=== PATIENT | male | born 1975 | race African-American/Black ===

== ENCOUNTER 2023-07-11 12:54 | Inpatient (IN) | payer MEDICAID, OTHER ==
[~2023-07-11] VITALS: Ht 203.2 cm; Wt 77.1 kg
[2023-07-11] MEDS ORDERED: HYDROMORPHONE 1 MG/1 ML DISP.SYRIN IV ONE ×2 (14:00→17:15)
[2023-07-11] MEDS ORDERED: ONDANSETRON 4 MG/2 ML VIAL IV ONE ×2 (14:00→17:15)
[2023-07-11] MEDS ORDERED: CEFTRIAXONE 1 G in IV DEXTROSE 5% 50 ML IV ONE (14:00)
[2023-07-11] MEDS ORDERED: CEFTRIAXONE /D5W 50ML IVPB **ER PYXIS IV ONE (14:09)
[2023-07-11] MEDS ORDERED: HYDROMORPHONE 1 MG/1 ML DISP.SYRIN ONE ×2 (14:09→17:16)
[2023-07-11] MEDS ORDERED: ONDANSETRON 4 MG/2 ML VIAL ONE ×2 (14:09→17:16)
[2023-07-11 14:15] LABS: BASOPHILS % (AUTO) 0.3 % (0.0-2.0); EOSINOPHILS # (AUTO) 0.2 K/uL (0.0-0.7); EOSINOPHILS % (AUTO) 2.1 % (0.0-7.0); HEMOGLOBIN 14.6 g/dL (12.5-16.3); LYMPHOCYTES # (AUTO) 1.5 K/uL (0.8-4.8); LYMPHOCYTES % (AUTO) 14.3 % (20.5-51.5); MEAN CORPUSCULAR HEMOGLOBIN 29.4 uug (23.8-33.4); MEAN CORPUSCULAR HGB CONC 33 g/dL (32.5-36.3); MEAN CORPUSCULAR VOLUME 88.3 fL (73.0-96.2); MONOCYTES # (AUTO) 0.8 K/uL (0.1-1.30); MONOCYTES % (AUTO) 7.4 % (0.0-11.0); NEUTROPHILS # (AUTO) 7.9 K/uL (1.8-8.9); NEUTROPHILS % (AUTO) 75.9 % (38.5-71.5); PLATELET COUNT (AUTO) 176 K/uL (152-348); RED BLOOD CELL COUNT(AUTO) 4.98 MIL/uL (4.06-5.63); RED CELL DISTRIBUTION WIDTH 12.7 % (12.1-16.2); WHITE BLOOD COUNT (AUTO) 10.4 K/uL (3.6-10.2)
[2023-07-11 14:25] LABS: CALCIUM 9.4 mg/dL (8.5-10.1); CREATININE 1.1 mg/dL (0.6-1.3); POTASSIUM 3.8 mmol/L (3.5-5.1)
[2023-07-11 14:29] LABS: DIFFERENTIAL COMMENT 1
[2023-07-11 14:30] LABS: ALBUMIN 4.2 g/dL (3.4-5.0); BILIRUBIN,TOTAL 0.9 mg/dL (0.2-1.0); TOTAL PROTEIN, SERUM 7.8 g/dL (6.4-8.2)
[2023-07-11] MEDS ORDERED: IV NORMAL SALINE 250 ML IV ONE (14:48)
[2023-07-11] MEDS ORDERED: IOHEXOL 300MG/ML 100 ML INFUS..BTL ONE (14:48)
[2023-07-11] MEDS ORDERED: SWABABLE VALVE TRANSFER SET EA MC ONE (14:48)
[2023-07-11] MEDS ORDERED: LIDOCAINE 2%-EPI 1:100,000 20 ML VIAL TP STA (19:40)
[2023-07-11] MEDS ORDERED: LIDOCAINE 1%-EPI 1:100,000 20 ML VIAL ONE (19:50)
[2023-07-11] MEDS: AMOXICILLIN-CLAVUL 875-125MG TABLET PO SCH (21:02)
[2023-07-11 21:10] VITALS: BP 105/47; TEMP 98.4; O2SAT 99
[2023-07-11] MEDS ORDERED: HYDROCODONE/APAP 5-325MG TABLET PO PRN (22:15)
[2023-07-11] MEDS ORDERED: MORPHINE SULFATE 4 MG/1 ML DISP.SYRIN IV PRN (22:15)
[2023-07-12] MEDS ORDERED: ACETAMINOPHEN 325 MG TABLET PO PRN (01:15)
[2023-07-12] MEDS ORDERED: ZOLPIDEM 5 MG TABLET PO PRN (01:15)
[2023-07-12] MEDS ORDERED: REMEDY ESSENTIAL ZINC PASTE 113 GM TP PRN (01:15)
[2023-07-12] MEDS ORDERED: ONDANSETRON 4 MG/2 ML VIAL IV PRN (01:15)
[2023-07-12] MEDS ORDERED: MAGNESIUM HYDROXIDE 30 ML LIQUID UDC PO PRN (01:15)
[2023-07-12 04:22] VITALS: BP 111/64; TEMP 98.5; O2SAT 95
[2023-07-12 06:44] LABS: BASOPHILS % (AUTO) 0.3 % (0.0-2.0); EOSINOPHILS # (AUTO) 0.2 K/uL (0.0-0.7); EOSINOPHILS % (AUTO) 2.3 % (0.0-7.0); HEMATOCRIT 39.8 % (36.7-47.1); HEMOGLOBIN 13.6 g/dL (12.5-16.3); LYMPHOCYTES # (AUTO) 1.7 K/uL (0.8-4.8); LYMPHOCYTES % (AUTO) 19.6 % (20.5-51.5); MEAN CORPUSCULAR HEMOGLOBIN 29.7 uug (23.8-33.4); MEAN CORPUSCULAR HGB CONC 34 g/dL (32.5-36.3); MONOCYTES # (AUTO) 0.7 K/uL (0.1-1.30); MONOCYTES % (AUTO) 7.6 % (0.0-11.0); NEUTROPHILS % (AUTO) 70.2 % (38.5-71.5); PLATELET COUNT (AUTO) 157 K/uL (152-348); RED BLOOD CELL COUNT(AUTO) 4.58 MIL/uL (4.06-5.63); RED CELL DISTRIBUTION WIDTH 12.6 % (12.1-16.2); WHITE BLOOD COUNT (AUTO) 8.6 K/uL (3.6-10.2)
[2023-07-12 06:55] LABS: CALCIUM 8.7 mg/dL (8.5-10.1); CREATININE 1.1 mg/dL (0.6-1.3); POTASSIUM 3.9 mmol/L (3.5-5.1)
[2023-07-12 07:00] LABS: DIFFERENTIAL COMMENT 1
[2023-07-12] MEDS: AMOXICILLIN-CLAVUL 875-125MG TABLET PO SCH (09:32)
[2023-07-12] MEDS ORDERED: POLY17PO4 PO (11:14)
[2023-07-12] MEDS ORDERED: DOCU-141 PO (11:14)
[2023-07-12] MEDS ORDERED: AMOX-430 PO (11:14)
[2023-07-12 11:30] VITALS: BP 117/83; TEMP 98.2; O2SAT 96
== END 2023-07-12 12:40 | disposition home health service (06) | DRG 254 ==
LOC: ER 12:54 → MEDSURG3 19:33
PROVIDERS: ADMIT Nurse Practitioner Acute Care; ATTEND Nurse Practitioner Acute Care
PROC: 0D9Q3ZZ Drainage of Anus, Percutaneous Approach (ICD-10-PCS; principal; 2023-07-11)
DX: K61.0 Anal abscess (principal); D72.829 Elevated white blood cell count, unspecified; K64.4 Residual hemorrhoidal skin tags; Z98.890 Other specified postprocedural states
CPT/HCPCS: 36415; 72193; 83605; 85025; 87040; A4663; G0378; J0696; J1170; J2405; J3490; Q9967

== ENCOUNTER 2023-07-13 11:14 | Emergency (ER) | payer MEDICAID ==
[~2023-07-13] VITALS: Ht 203.2 cm; Wt 77.1 kg
[~2023-07-13 11:14] MED LIST: AMOX-430 PO; DOCU-141 PO; POLY17PO4 PO
[2023-07-13] MEDS ORDERED: NEOMY/BACITRA/POLYMYXIN B OINT UD PACKET TP ONE ×2 (11:33→11:45)
[2023-07-13 11:44] VITALS: BP 155/68; TEMP 97.8; O2SAT 98
== END 2023-07-13 11:44 | disposition home or self-care (01) ==
LOC: ER 11:21
DX: K61.0 Anal abscess (principal); Z79.2 Long term (current) use of antibiotics; Z79.899 Other long term (current) drug therapy
CPT/HCPCS: A4606; A4663

== ENCOUNTER 2025-04-14 13:25 | Emergency (ER) | payer MEDICAID ==
[~2025-04-14] VITALS: Ht 203.2 cm; Wt 81.6 kg
[2025-04-14 13:28] VITALS: O2SAT 98
[2025-04-14] MEDS ORDERED: MELO-107 PO (13:37)
[2025-04-14] MEDS ORDERED: CYCL10TA9 PO (13:37)
[2025-04-14] MEDS ORDERED: LORA-656 PO (13:37)
[2025-04-14] MEDS ORDERED: FLUT16SP BNOSTRILS (13:37)
[2025-04-14] MEDS ORDERED: AMOX-430 PO (14:30)
[2025-04-14] MEDS ORDERED: HYDR-3972 PO (14:30)
[2025-04-14] MEDS ORDERED: AMOXICILLIN-CLAVUL 875-125MG TABLET ONE (14:37)
[2025-04-14] MEDS: AMOXICILLIN-CLAVUL 875-125MG TABLET PO ONE (14:38)
== END 2025-04-14 14:43 | disposition home or self-care (01) ==
LOC: ER 13:25
DX: K61.0 Anal abscess (principal); M54.9 Dorsalgia, unspecified; F12.90 Cannabis use, unspecified, uncomplicated; G89.29 Other chronic pain; F19.10 Other psychoactive substance abuse, uncomplicated; Z79.1 Long term (current) use of non-steroidal anti-inflammatories (NSAID); Z87.19 Personal history of other diseases of the digestive system; Z88.6 Allergy status to analgesic agent; Z88.7 Allergy status to serum and vaccine
CPT/HCPCS: A4606; A4663

== ENCOUNTER 2025-04-20 13:45 | Inpatient (IN) | payer MEDICAID ==
[~2025-04-20] VITALS: Ht 203.2 cm; Wt 81.6 kg
[~2025-04-20 13:45] MED LIST changes: +CYCL10TA9 PO; +FLUT16SP BNOSTRILS; +HYDR-3972 PO; +LORA-656 PO; +MELO-107 PO
[2025-04-20 15:07] LABS: PLATELET COUNT (AUTO) 178 K/uL (152-348); RED BLOOD CELL COUNT(AUTO) 4.99 MIL/uL (4.06-5.63); RED CELL DISTRIBUTION WIDTH 12.9 % (12.1-16.2); WHITE BLOOD COUNT (AUTO) 5.3 K/uL (3.6-10.2)
[2025-04-20 15:13] LABS: CREATININE 1.0 mg/dL (0.6-1.3); SODIUM SERUM 140 mmol/L (136-145); UREA NITROGEN, BLOOD 14 mg/dL (7-18)
[2025-04-20 15:19] LABS: ASPARTATE AMINOTRANSFERASE 26 U/L (15-37); TOTAL PROTEIN, SERUM 7.5 g/dL (6.4-8.2)
[2025-04-20] MEDS ORDERED: IOHEXOL 300MG/ML 100 ML INFUS..BTL ONE (15:22)
[2025-04-20] MEDS ORDERED: SWABABLE VALVE TRANSFER SET EA MC ONE (15:22)
[2025-04-20] MEDS ORDERED: IV NORMAL SALINE 250 ML IV ONE (15:22)
[2025-04-20 19:14] LABS: *BILIRUBIN,URIN NEGATIVE (NEGATIVE); *BLOOD, URINE NEGATIVE (NEGATIVE); *CLARITY,URINE CLEAR (CLEAR); *COLOR,URINE YELLOW (YELLOW); *KETONES,URINE NEGATIVE (NEGATIVE); *PROTEIN,URINE NEGATIVE (NEGATIVE); *UROBILINOGEN,URINE 0.2 E.U./dl (NORMAL); LEUKOCYTE ESTERASE ,URINE NEGATIVE (NEGATIVE); NITRITE, URINE NEGATIVE (NEGATIVE); UGLUCOSE NEGATIVE (NEGATIVE)
[2025-04-20] MEDS ORDERED: MAGNESIUM HYDROXIDE 30 ML LIQUID UDC PO PRN (20:30)
[2025-04-20] MEDS ORDERED: ACETAMINOPHEN 325 MG TABLET PO PRN (20:30)
[2025-04-20] MEDS ORDERED: ONDANSETRON 4 MG/2 ML VIAL IV PRN (20:30)
[2025-04-20] MEDS ORDERED: PIPERACILLIN/TAZOBACTAM/D5W 50 ML IV ONE ×2 (21:09)
[2025-04-20] MEDS ORDERED: PIPERACILLIN SODIUM/TAZOBACTAM 3.375 G in IV DEXTROSE 5% 50 ML IV SCH (22:00)
[2025-04-20 22:03] VITALS: BP 134/77; TEMP 98.6; O2SAT 100
[2025-04-20] MEDS: PIPERACILLIN SODIUM/TAZOBACTAM 3.375 G in IV DEXTROSE 5% 50 ML IV SCH (22:10)
[2025-04-21] MEDS: PANTOPRAZOLE SODIUM 40 MG TABLET.DR PO SCH (06:08)
[2025-04-21 06:43] VITALS: BP 118/73; TEMP 98.5; O2SAT 100
[2025-04-21 06:47] LABS: PLATELET COUNT (AUTO) 167 K/uL (152-348); RED BLOOD CELL COUNT(AUTO) 4.69 MIL/uL (4.06-5.63); RED CELL DISTRIBUTION WIDTH 12.6 % (12.1-16.2); WHITE BLOOD COUNT (AUTO) 6.4 K/uL (3.6-10.2)
[2025-04-21 07:09] LABS: ASPARTATE AMINOTRANSFERASE 21.0 U/L (15-37); CREATININE 0.9 mg/dL (0.6-1.3); SODIUM SERUM 142.0 mmol/L (136-145); TOTAL PROTEIN, SERUM 6.5 g/dL (6.4-8.2); UREA NITROGEN, BLOOD 15.0 mg/dL (7-18)
[2025-04-21] MEDS: LORATADINE 10 MG TABLET PO SCH (08:04)
[2025-04-21 10:52] VITALS: BP 113/67; TEMP 98.8; O2SAT 100
[2025-04-21] MEDS: PIPERACILLIN SODIUM/TAZOBACTAM 3.375 G in IV DEXTROSE 5% 100 ML IV SCH (13:10)
[2025-04-21 15:58] VITALS: BP 136/81; TEMP 98.2; O2SAT 94
[2025-04-21 19:00] VITALS: BP 114/70; TEMP 97.8; O2SAT 100
[2025-04-21] MEDS: CYCLOBENZAPRINE HCL 10 MG TABLET PO SCH (20:29)
[2025-04-22 06:00] VITALS: BP 113/64; TEMP 97.9; O2SAT 100
[2025-04-22 08:10] LABS: PLATELET COUNT (AUTO) 172 K/uL (152-348); RED BLOOD CELL COUNT(AUTO) 4.72 MIL/uL (4.06-5.63); RED CELL DISTRIBUTION WIDTH 12.6 % (12.1-16.2); WHITE BLOOD COUNT (AUTO) 6.2 K/uL (3.6-10.2)
[2025-04-22 08:26] LABS: CREATININE 1.0 mg/dL (0.6-1.3); SODIUM SERUM 141.0 mmol/L (136-145); UREA NITROGEN, BLOOD 18.0 mg/dL (7-18)
[2025-04-22] MEDS ORDERED: DOXY-326 PO (10:21)
== END 2025-04-22 10:50 | disposition home or self-care (01) | DRG 254 ==
LOC: ER 13:45 → MEDSURG3 20:12
PROVIDERS: ADMIT Nurse Practitioner Family; ATTEND Nurse Practitioner Family
DX: K61.1 Rectal abscess (principal); F12.90 Cannabis use, unspecified, uncomplicated; Z88.6 Allergy status to analgesic agent; Z98.890 Other specified postprocedural states
CPT/HCPCS: 36415; 71045; 72193; 83690; 83735; 84100; 84484; 85025; 85730; 87086; A4663; G0378; J2543; Q9967